=== PATIENT | male | born 1990 | race Caucasian/White ===

== ENCOUNTER 2018-09-27 20:21 | Emergency (ER) | payer OTHER ==
--- NOTE | 2018-09-27 21:02 | EDM.PDOC ---
<Isi Bahena Jass - Last Filed: 09/27/18 22:02> ED HPI GENERAL MEDICAL PROBLEM - General Chief Complaint: Chest Pain Stated Complaint: DIZZY/CHEST PRESSURE Time Seen by Provider: 09/27/18 20:45 Source of Information: Reports: Patient, RN Notes Reviewed, Significant Other History Limitations: Reports: No Limitations - History of Present Illness INITIAL COMMENTS - FREE TEXT/NARRATIVE: Eb is a 28 yo male who presents to the ER with complaints of chest discomfort in the epigastric region that radiates to the left chest. and daughter are in the room with him. His main concern is the dizzy spells that he has had today. He did not black out but had to really concentrate to stay up right. He had been sitting but stood up and the dizziness got better. His worst episode was when he crawled up into the [place]opez and thought he went up to fast. He does have a history of GERD and was started on Wellbutrin for depression about 3 1/2 weeks ago. He is under a lot of stress due to his grandmother being ill and needing to leave for [place] because of this. Onset: Today Onset Date: 09/27/18 Onset Time: 16:00 Duration: Intermittent Location: Reports: Head, Chest Quality: Reports: Sharp Severity: Moderate Improves with: Reports: None Context: Reports: Activity Associated Symptoms: Reports: Other (dizziness) Chest Pain Score (Numeric/FACES): 1 - Related Data Allergies Allergy/AdvReac Type Severity Reaction Status Date / Time No Known Allergies Allergy Verified 09/27/18 20:40 Home Meds: Home Meds Levothyroxine 75 mg PO DAILY 09/27/18 [History] Omeprazole 20 mg PO DAILY PRN 09/27/18 [History] buPROPion [Wellbutrin] 300 mg PO DAILY 09/27/18 [History] Past Medical History Gastrointestinal History: Reports: GERD, Other (See Below) Other Gastrointestinal History: acid reflux Psychiatric History: Reports: Depression (on Wellbutrin) - Past Surgical History HEENT Surgical History: Reports: Oral Surgery Social & Family History - Family History Other Cardiac Family History: Uncle around age 40 of cardiac issues. - Tobacco Use Smoking Status *Q: Former Smoker Used Tobacco, but Quit: Yes Month/Year Tobacco Last Used: 18mo ago - Caffeine Use Caffeine Use: Reports: Coffee, Energy Drinks, Soda, Tea - Recreational Drug Use Recreational Drug Use: No ED ROS GENERAL - Review of Systems Review Of Systems: See Below Constitutional: Reports: No Symptoms HEENT: Reports: No Symptoms Respiratory: Reports: No Symptoms Cardiovascular: Reports: Chest Pain Endocrine: Reports: No Symptoms GI/Abdominal: Reports: No Symptoms : Reports: No Symptoms Musculoskeletal: Reports: No Symptoms Skin: Reports: No Symptoms Neurological: Reports: Dizziness Psychiatric: Reports: Anxiety, Depression Hematologic/Lymphatic: Reports: No Symptoms Immunologic: Reports: No Symptoms ED EXAM, GENERAL - Physical Exam Exam: See Below Exam Limited By: No Limitations General Appearance: Alert, WD/WN, Anxious Ears: Normal External Exam Nose: Normal Inspection Throat/Mouth: Normal Lips Head: Atraumatic, Normocephalic Neck: Normal Inspection, Supple Respiratory/Chest: No Respiratory Distress, Lungs Clear, Normal Breath Sounds, No Accessory Muscle Use, Chest Non-Tender Cardiovascular: Normal Peripheral Pulses, Regular Rate, Rhythm, No Edema, No Gallop, No JVD, No Murmur, No Rub GI/Abdominal: Normal Bowel Sounds, Soft, Non-Tender, No Distention (Male) Exam: Deferred Rectal (Males) Exam: Deferred Neurological: Alert, Oriented, CN II-XII Intact, Normal Cognition Psychiatric: Anxious, Tearful (patient appears stressed. ) Skin Exam: Warm, Dry, Intact, Normal Color, No Rash Course - Vital Signs Last Recorded V/S: Last Vital Signs Temp 36.6 C 09/27/18 20:38 Pulse 97 09/27/18 20:38 Resp 18 09/27/18 20:38 BP 160/99 H 09/27/18 20:38 Pulse Ox 98 09/27/18 20:38 Orthostatic Blood Pressure [ 150/88 Standing] Orthostatic Blood Pressure [ 141/90 Supine] - Orders/Labs/Meds Orders: Active Orders 24 hr Category Date Time Status EKG Documentation Completion [RC] STAT Care 09/27/18 21:01 Active Orthostatic Vital Signs [RC] ASDIRECTED Care 09/27/18 21:00 Active Chest 1V Frontal [CR] Stat Exams 09/27/18 21:01 Taken Sodium Chloride 0.9% [Normal Saline] 1,000 ml Med 09/27/18 21:15 Active IV ASDIRECTED Medication Orders Sodium Chloride (Normal Saline) 1,000 mls @ 100 mls/hr IV ASDIRECTED TERRI Last Admin: 09/27/18 21:15 Dose: 100 mls/hr Labs: Laboratory Tests 09/27/18 09/27/18 09/27/18 Range/Units 21:10 21:10 21:10 WBC 7.20 (4.23-9.07) K/mm3 RBC 5.41 (4.63-6.08) M/mm3 Hgb 15.5 (13.7-17.5) gm/L Hct 46.4 (40.1-51.0) % MCV 85.8 (79.0-92.2) fl MCH 28.7 (25.7-32.2) pg MCHC 33.4 (32.2-35.5) g/dl RDW Std Deviation 40.4 (35.1-43.9) fL Plt Count 287 (163-337) K/mm3 MPV 10.8 (9.4-12.3) fl Neutrophils % (Manual) 72 H (40-60) % Band Neutrophils % 1 (0-10) % Lymphocytes % (Manual) 21 (20-40) % Atypical Lymphs % 0 % Monocytes % (Manual) 5 (2-10) % Eosinophils % (Manual) 1 (0.8-7.0) % Basophils % (Manual) 0 L (0.2-1.2) Platelet Estimate Adequate RBC Morph Comment Normal D-Dimer, Quantitative < 0.19 L (0.19-0.50) mg/L Sodium 138 (136-145) mEq/L Potassium 3.3 L (3.5-5.1) mEq/L Chloride 103 (98-107) mEq/L Carbon Dioxide 26 (21-32) mEq/L Anion Gap 12.3 (5-15) BUN 13 (7-18) mg/dL Creatinine 1.3 (0.7-1.3) mg/dL Est Cr Clr Drug Dosing 84.60 mL/min Estimated GFR (MDRD) > 60 (>60) mL/min BUN/Creatinine Ratio 10.0 L (14-18) Glucose 126 H (74-106) mg/dL Calcium 8.9 (8.5-10.1) mg/dL Magnesium 1.9 (1.8-2.4) mg/dl Total Bilirubin 0.5 (0.2-1.0) mg/dL AST 26 (15-37) U/L ALT 60 (16-63) U/L Alkaline Phosphatase 69 (46-116) U/L CK-MB (CK-2) 1.0 (0-3.6) ng/ml Troponin I < 0.017 (0.00-0.056) ng/mL C-Reactive Protein 0.9 (<1.0) mg/dL Total Protein 7.7 (6.4-8.2) g/dl Albumin 4.1 (3.4-5.0) g/dl Globulin 3.6 gm/dL Albumin/Globulin Ratio 1.1 (1-2) Meds: Medications Generic Name Dose Route Start Last Admin Trade Name Freq PRN Reason Stop Dose Admin Sodium Chloride 1,000 mls @ 100 mls/hr 09/27/18 21:15 09/27/18 21:15 Normal Saline IV 100 mls/hr ASDIRECTED TERRI Administration Discontinued Medications Generic Name Dose Route Start Last Admin Trade Name Freq PRN Reason Stop Dose Admin Al Hydroxide/Mg Hydroxide 30 0 ml 09/27/18 21:50 09/27/18 21:54 ml/ Lidocaine HCl 15 ml PO 09/27/18 21:51 45 ml ONETIME ONE Administration - Re-Assessments/Exams Free Text/Narrative Re-Assessment/Exam: 09/27/18 21:20 spoke with patient and explained the labs, ekg and chest xray. Will give him a GI cocktail to help with the epigastric discomfort. Pt is not real sure about the cocktail because he doesn't think it is reflux, explained that it will not hurt him but will help if it is reflux. 09/27/18 21:59 Spoke with patient and is about ekg and chest xray. reassurance given that they are normal. Waiting for labs. Will give the GI cocktail and see if that helps. Will update him on labs when they are all complete. Departure - Departure Disposition: Home, Self-Care 01 Clinical Impression: Non-cardiac chest pain Instructions: Nonspecific Chest Pain Referrals: Bernadette Smiley NP [Primary Care Provider] - Forms: ED Department Discharge Additional Instructions: Evaluation the emergency room tonight in regards to central chest discomfort started tonight. Recognizing that you are under good deal of stress with grandmother's illness in [place] with plans to travel there tonight. All of the investigations done through the emergency room tonight including heart tracing, chest x-ray, lab tests to rule out heart attack a look at what was called cardiac markers that can only come from damaged heart muscle are negative. Also no evidence of any blood clot in the lung. Therefore all the tests that we ran show no evidence of heart related illness. History of gastroesophageal reflux appreciated. Is often the cause of chest pain with spasm of the lower food pipe due to reflux of some acid into the lower one third of the food pipe while we are sleeping. This can leave the food pipe irritated and inflamed and can cause spasm and chest pains for 10 days after one bad night of reflux. I would therefore suggest going on Prilosec at bedtime daily for the next 2 weeks and then every other night to prevent permanent damage to the lower food pipe. - My Orders Last 24 Hours: My Active Orders 09/27/18 21:00 Orthostatic Vital Signs [RC] ASDIRECTED 09/27/18 21:01 EKG Documentation Completion [RC] STAT Chest 1V Frontal [CR] Stat 09/27/18 21:15 Sodium Chloride 0.9% [Normal Saline] 1,000 ml IV ASDIRECTED - Assessment/Plan Last 24 Hours: My Active Orders 09/27/18 21:00 Orthostatic Vital Signs [RC] ASDIRECTED 09/27/18 21:01 EKG Documentation Completion [RC] STAT Chest 1V Frontal [CR] Stat 09/27/18 21:15 Sodium Chloride 0.9% [Normal Saline] 1,000 ml IV ASDIRECTED <J Carlos Samuel - Last Filed: 09/27/18 22:40> Past Medical History Gastrointestinal History: Reports: GERD Social & Family History - Tobacco Use Smoking Status *Q: Former Smoker (Quit cigarettes about 18 months ago was 1 pack -a-day smoker) - Living Situation & Occupation Living situation: Reports: Occupation: Employed EKG INTERPRETATION EKG Date: 09/27/18 Time: 21:22 Rhythm: NSR Rate (Beats/Min): 86 Taberg: Normal P-Wave: Present QRS: Other (Nonspecific intraventricular trickier conduction delay pattern. Mildly decreased voltage in the precordial leads) ST-T: Normal QT: Normal EKG Interpretation Comments: No signs of ischemia Course - Radiology Interpretation Free Text/Narrative:: 28-year-old male presents to the ED with diffuse epigastric lower retrosternal chest discomfort. Recognizes under good deal of duress at present is his grandmother is very ill in [place] and they have plans to start driving towards [place] to trying to the bedside before she passes. This evening he developed a pressure sensation in his epigastrium and lower retrosternal chest with no radiation to the neck back or arm. He has no known cardiac history. He does have a history of gastroesophageal reflux disease and often will wake up at night with acid in his mouth and throat. He uses Prilosec on a when necessary basis usually when he has symptoms but often will go several weeks without needing it. He denies cough or sputum production. Does feel mildly short of breath. Describes the discomfort with a bit of a burning discomfort to it. Plan ECG done by triage nurse shows sinus rhythm at 86/m with nonspecific intraventricular conduction delay pattern. There is no signs of ischemia. Plan 1 view chest x-ray routine labs including cardiac markers and d-dimer to be done. - Re-Assessments/Exams Free Text/Narrative Re-Assessment/Exam: 09/27/18 21:51 Hematology reveals a normal white count at 7.20 with 72% neutrophils and 1% band cells. Hemoglobin is 15.5 with hematocrit of 46.4. Platelet count is 287,000. D-dimer is less than 0.19. Chest x-ray is within normal limits. ECG is sinus rhythm at 86/m with a nonspecific intraventricular conduction delay and mildly decreased voltage in the precordial leads but no signs of ischemia. 09/27/18 22:07 Sodium is 138 with a potassium slightly low at 3.3. Chloride 103 with a bicarbonate 26. Anion gap is 12.3 with a BUN of 13 and a creatinine of 1.3. GFR is greater than 60. BUN/creatinine ratio is 10.0. Glucose 126. Calcium 8.9 with magnesium of 1.9. Liver function is normal. CK-MB is 1.0 with troponin I of less than 0.017. C-reactive protein is 0.9. Total protein is 7.7 with an albumin fraction of 4.1. 09/27/18 22:20: Discussed the findings with the patient. Reassured that there is no evidence that he has any heart related illness. I feel it is safe for him to drive [place] alternating with his so they get adequate sleep. I believe his pain is likely gastroesophageal in origin with gastroesophageal reflux into the lower food pipe likely during sleep. Advised him to take Prilosec every day at bedtime for the next 2 weeks and then every other night to minimize damage to the esophagus over time. He reports that the GI cocktail did provide him with some relief of the pain. discharged to home. Follow-up with personal care physician if any further problems occur. Departure - Departure Time of Disposition: 22:38
--- NOTE | 2018-09-27 21:03 | EDM.PDOC ---
ED HPI GENERAL MEDICAL PROBLEM - General Chief Complaint: Chest Pain Stated Complaint: DIZZY/CHEST PRESSURE Time Seen by Provider: 09/27/18 21:00 Source of Information: Reports: Patient, Family History Limitations: Reports: No Limitations (Spouse) - History of Present Illness INITIAL COMMENTS - FREE TEXT/NARRATIVE: Note there are 2 charts in this patient. Patient was seen in concert with joint Jan STANTON student. I did see this patient in consultation and examined him as well. He presents to the ED with epigastric lower retrosternal chest pain that radiates slightly to the left precordial chest. Associated with to dizzy spells today by that he means he got lightheaded and felt like he might pass out for a period of time. Of note he was around his brain at the time this occurred an unclear whether or not he could've been exposed to excessive carbon monoxide. He recognizes under great deal of stress recently as well since his grandmother is in [facility] in [place] and they plan to travel [facility] to hopefully get to her bedside to say goodbye by as she is not expected to survive current illness. He has a history of gastroesophageal reflux and uses Prilosec when necessary. His biggest concern is the dizzy spells that occurred for no apparent reason. He is on Wellbutrin daily in the dosage was increased 10 days ago which should maintain that he is over the side effect profile which is can be flushing and dizziness related to the medication effect. Vital signs are stable and he is recognizably quite anxious on examination. Onset: Today Onset Date: 09/27/18 Onset Time: 14:00 Duration: Hour(s):, Intermittent Location: Reports: Chest, Other (Some lower retrosternal chest discomfort left precordial chest pain dizziness to the point of feeling like he might pass out 2 this afternoon) Quality: Reports: Burning Severity: Moderate (Light burning discomfort to the pain in his chest.) Improves with: Reports: None ( Would rated as a 3 or 4 out of 10.) Worsens with: Reports: None Context: Denies: Activity, Exercise, Lifting, Sick Contact, Trauma, Other Associated Symptoms: Reports: Chest Pain (Lower retrosternal chest discomfort left precordial chest discomfort), Other (Luc near syncope with dizziness lightheadedness. No true vertigo symptoms). 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 Blood levels were checked yesterday in clinic.) - Past Surgical History HEENT Surgical History: Reports: Oral Surgery Social & Family History - Tobacco Use Smoking Status *Q: Former Smoker Used Tobacco, but Quit: Yes Month/Year Tobacco Last Used: 18mo ago - Caffeine Use Caffeine Use: Reports: Coffee, Energy Drinks, Soda, Tea - Recreational Drug Use Recreational Drug Use: No ED ROS GENERAL - Review of Systems Review Of Systems: See Below Constitutional: Denies: Fever, Chills, Malaise, Weakness, Decreased Appetite, Weight Loss HEENT: Reports: No Symptoms Respiratory: Reports: No Symptoms. Denies: Shortness of Breath, Cough, Hemoptysis, Other Cardiovascular: Reports: Chest Pain, Lightheadedness (History of present illness to lightheaded episodes occurred today while at work. I have some concerns he may been exposed to excessive amounts of carbon dioxide with the [employer] running.) Endocrine: Reports: Fatigue GI/Abdominal: Reports: Abdominal Pain, Other (Does have some epigastric abdominal pain that seems to be referred up into his lower retrosternal area.) : Reports: No Symptoms ( GERD which he uses Prilosec for intermittently.) Musculoskeletal: Reports: Back Pain (Occasional problems with low back pain.) Skin: Reports: No Symptoms Neurological: Reports: Dizziness (Lisle dizzy 2 today to the point where he felt like he might pass out. Unaware of his heart racing skipping and jumping at the time) Psychiatric: Reports: Anxiety Hematologic/Lymphatic: Reports: No Symptoms (He has started on Wellbutrin about 6 weeks ago for anxiety relief. Dosage was increased 10 days ago.) Immunologic: Reports: No Symptoms ED EXAM, GENERAL - Physical Exam Exam: See Below Exam Limited By: No Limitations General Appearance: Alert, WD/WN, Anxious, Mild Distress Eye Exam: Bilateral Eye: Normal Inspection Ears: Normal TMs Throat/Mouth: Normal Inspection, Normal Lips, Normal Oropharynx, Other Head: Atraumatic, Normocephalic (Uvula is in the midline) Neck: Normal Inspection, Supple, Non-Tender, Full Range of Motion. No: Carotid Bruit, Lymphadenopathy (L), Lymphadenopathy (R) Respiratory/Chest: No Respiratory Distress, Lungs Clear, Normal Breath Sounds, No Accessory Muscle Use Cardiovascular: Normal Peripheral Pulses, Regular Rate, Rhythm, No Edema, No Gallop, No Murmur, No Rub Peripheral Pulses: 3+: Posterior Tibial (L), Posterior Tibial (R), Dorsalis Pedis (L), Dorsalis Pedis (R) GI/Abdominal: Normal Bowel Sounds, Soft, Tender (Slight tenderness in the epigastrium only) Extremities: Normal Inspection, Normal Range of Motion, Non-Tender, Normal Capillary Refill Neurological: Alert, Oriented, CN II-XII Intact, Normal Cognition, Normal Gait Psychiatric: Normal Affect, Normal Mood Skin Exam: Warm, Dry, Intact, Normal Color, No Rash Course - Vital Signs Last Recorded V/S: Last Vital Signs Temp 36.6 C 09/27/18 20:38 Pulse 97 09/27/18 20:38 Resp 18 09/27/18 20:38 BP 160/99 H 09/27/18 20:38 Pulse Ox 98 09/27/18 20:38 Orthostatic Blood Pressure [ 150/88 Standing] Orthostatic Blood Pressure [ 141/90 Supine] - Orders/Labs/Meds Orders: Active Orders 24 hr Category Date Time Status EKG Documentation Completion [RC] STAT Care 09/27/18 21:01 Active Orthostatic Vital Signs [RC] ASDIRECTED Care 09/27/18 21:00 Active Chest 1V Frontal [CR] Stat Exams 09/27/18 21:01 Taken Labs: Laboratory Tests 09/27/18 09/27/18 09/27/18 Range/Units 21:10 21:10 21:10 WBC 7.20 (4.23-9.07) K/mm3 RBC 5.41 (4.63-6.08) M/mm3 Hgb 15.5 (13.7-17.5) gm/L Hct 46.4 (40.1-51.0) % MCV 85.8 (79.0-92.2) fl MCH 28.7 (25.7-32.2) pg MCHC 33.4 (32.2-35.5) g/dl RDW Std Deviation 40.4 (35.1-43.9) fL Plt Count 287 (163-337) K/mm3 MPV 10.8 (9.4-12.3) fl Neutrophils % (Manual) 72 H (40-60) % Band Neutrophils % 1 (0-10) % Lymphocytes % (Manual) 21 (20-40) % Atypical Lymphs % 0 % Monocytes % (Manual) 5 (2-10) % Eosinophils % (Manual) 1 (0.8-7.0) % Basophils % (Manual) 0 L (0.2-1.2) Platelet Estimate Adequate RBC Morph Comment Normal D-Dimer, Quantitative < 0.19 L (0.19-0.50) mg/L Sodium 138 (136-145) mEq/L Potassium 3.3 L (3.5-5.1) mEq/L Chloride 103 (98-107) mEq/L Carbon Dioxide 26 (21-32) mEq/L Anion Gap 12.3 (5-15) BUN 13 (7-18) mg/dL Creatinine 1.3 (0.7-1.3) mg/dL Est Cr Clr Drug Dosing 84.60 mL/min Estimated GFR (MDRD) > 60 (>60) mL/min BUN/Creatinine Ratio 10.0 L (14-18) Glucose 126 H (74-106) mg/dL Calcium 8.9 (8.5-10.1) mg/dL Magnesium 1.9 (1.8-2.4) mg/dl Total Bilirubin 0.5 (0.2-1.0) mg/dL AST 26 (15-37) U/L ALT 60 (16-63) U/L Alkaline Phosphatase 69 (46-116) U/L CK-MB (CK-2) 1.0 (0-3.6) ng/ml Troponin I < 0.017 (0.00-0.056) ng/mL C-Reactive Protein 0.9 (<1.0) mg/dL Total Protein 7.7 (6.4-8.2) g/dl Albumin 4.1 (3.4-5.0) g/dl Globulin 3.6 gm/dL Albumin/Globulin Ratio 1.1 (1-2) Meds: Medications Discontinued Medications Generic Name Dose Route Start Last Admin Trade Name Marilu PRN Reason Stop Dose Admin Al Hydroxide/Mg Hydroxide 30 0 ml 09/27/18 21:50 09/27/18 21:54 ml/ Lidocaine HCl 15 ml PO 09/27/18 21:51 45 ml ONETIME ONE Administration Sodium Chloride 1,000 mls @ 100 mls/hr 09/27/18 21:15 09/27/18 21:15 Normal Saline IV 100 mls/hr ASDIRECTED TERRI Administration - Radiology Interpretation Free Text/Narrative:: 20-year-old male presents to the ED with epigastric pressure discomfort rating up into the lower retrosternal area of his chest and left precordium. He also describes 2 events this afternoon while at work where he became quite dizzy lightheaded and felt like he might pass out. He did not recognize any heart palpitations at the time. This is never happened before. 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 He thought about it for a while and says it's possible. He is under great deal of duress at this point time with his grandmother in very poor health in [place]. A plan to drive to [facility] a [address] to try and get to her bedside before she succumbs to her current illness. I believe this is contributing to some of his chest discomfort as well. He also has a history of GERD and is not been using his Prilosec for the last week. Spleen that he can still be refluxing at nighttime into the lower third of the food pipe which may be causing some of his current symptoms as well. Landed you'll have a complete cardiac workup. His ECG revealed sinus rhythm at 86/m with a nonspecific intraventricular conduction delay but no signs of ischemia. Chest x-ray cardiac markers and a d-dimer will be done. - Re-Assessments/Exams Free Text/Narrative Re-Assessment/Exam: 09/27/18 22:20; chest x-rays within normal limits. 09/27/18 22:30: Labs reveal a normal white count at 7.20 with 72% neutrophils and 1% band cells. Hemoglobin is 15.5 with hematocrit of 46.4. Platelet count is 287,000. D-dimer is less than 0.19. Sodium 138 with potassium slightly low at 3.3. Chloride 103 with a bicarbonate 26. Anion gap is 12.3 with a BUN of 13. Creatinine was 1.3 GFR is greater than 60. BUN/creatinine ratio was 10.0. Glucose is 126. Calcium 8.9 with a magnesium of 1.9. Liver function is normal. CK-MB is 1.0 C-reactive protein is 0.9 troponin I is less than 0.017. I discussed the findings with the patient. I reassured him that there appears to be no evidence of heart related illness. Strongly suspect that he suffered from esophageal spasm from likely reflux during sleep. Advised him to resume Prilosec 20 mg once daily at bedtime for the next 2 weeks and then take it every other night. In regards to the dizzy spells signs just instructed to adopt a wait and see approach. 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 Follow up with personal care provider if any further problems occur. Departure - Departure Time of Disposition: 22:28 Disposition: Home, Self-Care 01 Condition: Fair Clinical Impression: Non-cardiac chest pain Instructions: Nonspecific Chest Pain Referrals: Bernadette Smiley NP [Primary Care Provider] - Forms: ED Department Discharge Additional Instructions: Evaluation the emergency room tonight in regards to central chest discomfort started tonight. Recognizing that you are under good deal of stress with grandmother's illness in [place] with plans to travel there tonight. All of the investigations done through the emergency room tonight including heart tracing, chest x-ray, lab tests to rule out heart attack a look at what was called cardiac markers that can only come from damaged heart muscle are negative. Also no evidence of any blood clot in the lung. Therefore all the tests that we ran show no evidence of heart related illness. History of gastroesophageal reflux appreciated. Is often the cause of chest pain with spasm of the lower food pipe due to reflux of some acid into the lower one third of the food pipe while we are sleeping. This can leave the food pipe irritated and inflamed and can cause spasm and chest pains for 10 days after one bad night of reflux. I would therefore suggest going on Prilosec at bedtime daily for the next 2 weeks and then every other night to prevent permanent damage to the lower food pipe. - My Orders Last 24 Hours: My Active Orders 09/27/18 21:00 Orthostatic Vital Signs [RC] ASDIRECTED 09/27/18 21:01 EKG Documentation Completion [RC] STAT Chest 1V Frontal [CR] Stat - Assessment/Plan Last 24 Hours: My Active Orders 09/27/18 21:00 Orthostatic Vital Signs [RC] ASDIRECTED 09/27/18 21:01 EKG Documentation Completion [RC] STAT Chest 1V Frontal [CR] Stat
[2018-09-27] MEDS ORDERED: Sodium Chloride 0.9% 1,000 ML IV SCH (21:15)
[2018-09-27] MEDS ORDERED: Alum Hydrox/Mag Hydrox/Simeth 30 ML, Lidocaine 2% 15 ML PO ONE ×2 (21:50)
--- NOTE | 2018-09-28 07:01 | CR ---
Chest: Portable view of the chest was obtained. Comparison: No prior chest x-ray. Heart size and mediastinum are normal. Linear scar or discoid atelectasis is seen within the right midlung. Lungs otherwise are clear. Bony structures are unremarkable. Impression: 1. Linear area of scarring or discoid atelectasis on the right side. Nothing acute is otherwise seen. Diagnostic code #2
== END 2018-09-27 22:40 | disposition home or self-care (01) ==
LOC: JD.ED 20:21
DX: R07.89 Other chest pain (principal); E03.9 Hypothyroidism, unspecified; Z79.899 Other long term (current) drug therapy; Z87.891 Personal history of nicotine dependence
CPT/HCPCS: 36415; 71045; 80053; 82553; 83735; 84484; 85007; 85027; 85379; 86140; 93005; 96360; 99285; A9270; J7040

== ENCOUNTER 2021-11-19 18:42 | Emergency (ER) | payer BC, OTHER ==
[2021-11-19] MEDS ORDERED: Sodium Chloride 0.9% 10 ML Syringe FLUSH PRN (19:40)
== END 2021-11-19 22:00 | disposition home or self-care (01) ==
LOC: JD.ED 18:42
DX: R07.89 Other chest pain (principal); K21.9 Gastro-esophageal reflux disease without esophagitis; E03.9 Hypothyroidism, unspecified; Z79.899 Other long term (current) drug therapy
CPT/HCPCS: 36415; 71045; 71045-26; 80053; 83735; 84484; 85025; 85610; 85730; 93005; 93010; 99283; 99285-25

== ENCOUNTER 2022-06-19 14:47 | Emergency (ER) | payer BC ==
[2022-06-19] MEDS ORDERED: predniSONE 20 MG Tab PO ONE (15:27)
== END 2022-06-19 15:43 | disposition home or self-care (01) ==
LOC: JD.ED 14:47
DX: G51.0 Bell's palsy (principal); F17.210 Nicotine dependence, cigarettes, uncomplicated; Z79.899 Other long term (current) drug therapy
CPT/HCPCS: 99283; J7512

== ENCOUNTER 2024-12-08 19:56 | Emergency (ER) | payer BC, MEDICAID ==
[2024-12-08] MEDS: Famotidine 20 MG/2 ML SDV IVPUSH ONE (20:30)
[2024-12-08] MEDS: Sodium Chloride 0.9% 1,000 ML IV ONE (20:30)
[2024-12-08] MEDS: Alum Hydrox/Mag Hydrox/Simeth 30 ML, Lidocaine 2% 15 ML PO ONE (20:30)
[2024-12-08 20:46] LABS: BASOPHILS ABSOLUTE AUTO 0.1 K/mm3 (0.0-0.2); BASOPHILS PERCENT AUTO 0.6 % (0.0-1.0); EOSINOPHILS ABSOLUTE AUTO 0.2 K/mm3 (0.0-0.4); EOSINOPHILS PERCENT AUTO 2.2 % (0.0-6.0); HEMATOCRIT 48.6 % (42.0-52.0); HEMOGLOBIN 16.3 gm/dl (14.0-18.0); IMMATURE GRAN ABSOLUTE AUTO 0.02 K/mm3 (0.00-0.05); IMMATURE GRAN PERCENT AUTO 0.2 % (0.0-0.4); LYMPHOCYTES ABSOLUTE AUTO 2.7 K/mm3 (1.0-4.8); LYMPHOCYTES PERCENT AUTO 30.4 % (24.0-44.0); MEAN CORPUSCULAR HEMOGLOBIN 29.7 pg (28.0-32.0); MEAN CORPUSCULAR HGB CONC 33.5 g/dl (32.0-36.0); MEAN CORPUSCULAR VOLUME 88.5 fl (83.0-99.0); MEAN PLATELET VOLUME 10.9 fl (9.4-12.4); MONOCYTES ABSOLUTE AUTO 0.8 K/mm3 (0.0-0.8); MONOCYTES PERCENT AUTO 9.4 % (0.0-8.0); NEUTROPHILS ABSOLUTE AUTO 5.1 K/mm3 (1.8-7.7); NEUTROPHILS PERCENT AUTO 57.2 % (41.0-71.0); PLATELET COUNT,PLT 304 K/mm3 (150-400); RED BLOOD CELL COUNT 5.49 M/mm3 (4.52-5.90); WHITE BLOOD CELL COUNT,WBC 8.91 K/mm3 (3.9-11.3)
[2024-12-08] MEDS: Iopamidol 612 MG/ML 30 ML SDV IV ONE (20:50)
[2024-12-08] MEDS: Iopamidol 612 MG/ML 100 ML Bottle IVPUSH ONE (20:50)
[2024-12-08] MEDS: Sodium Chloride 0.9% 10 ML Syringe FLUSH PRN (20:50)
[2024-12-08 21:13] LABS: A/G RATIO 0.9 (1-2); ALBUMIN 3.7 g/dl (3.4-5.0); ANION GAP 10.4 (5-15); BILIRUBIN TOTAL 0.4 mg/dL (0.2-1.0); BUN/CREATININE RATIO 8.6 (14-18); C-REACTIVE PROTEIN 0.79 mg/dL (<0.30); CALCIUM 9.1 mg/dL (8.5-10.1); CREATININE 1.4 mg/dL (0.7-1.3); EST CRCL DRUG DOSING (CG) 74.35 mL/min; POTASSIUM,K 3.4 mEq/L (3.5-5.1); PROTEIN TOTAL,TP 7.8 g/dl (6.4-8.2)
[2024-12-08] MEDS ORDERED: Naloxone 0.4 MG/ML SDV IVPUSH PRN (21:24)
[2024-12-08] MEDS: HYDROmorphone 0.5 MG/0.5 ML Syringe IVPUSH ONE (21:42)
== END 2024-12-08 22:00 | disposition home or self-care (01) ==
LOC: JD.ED 19:56
DX: K81.9 Cholecystitis, unspecified (principal); E03.9 Hypothyroidism, unspecified; Z79.899 Other long term (current) drug therapy
CPT/HCPCS: 36415; 74177; 80053; 83690; 85025; 86140; 96361; 96374; 96375; 99284; A9270; J7030; Q9967

== ENCOUNTER 2024-12-25 12:26 | Day surgery (SDC) | payer MEDICAID ==
[2024-12-25] MEDS ORDERED: Lactated Ringers 1,000 ML IV ONE (12:27)
[2024-12-25] MEDS ORDERED: Midazolam 1 MG/ML 2 ML SDV ONE (12:42)
[2024-12-25] MEDS ORDERED: fentaNYL 250 MCG/5 ML SDV ONE (12:43)
[2024-12-25] MEDS ORDERED: Propofol 200 MG/20 ML SDV ONE ×4 (12:43→13:06)
[2024-12-25] MEDS ORDERED: Succinylcholine 200 MG/10 ML MDV ONE (12:44)
[2024-12-25] MEDS ORDERED: Rocuronium 50 MG/5 ML Vial ONE (12:44)
[2024-12-25] MEDS ORDERED: Lidocaine 2% 5 ML SDV ONE (12:44)
[2024-12-25] MEDS ORDERED: ceFAZolin 2 GM Vial ONE (12:47)
[2024-12-25] MEDS: Lactated Ringers 1,000 ML IV SCH (13:00)
[2024-12-25] MEDS: Acetaminophen 325 MG Tab PO ONE (13:03)
[2024-12-25] MEDS: Gabapentin 300 MG Cap PO ONE (13:03)
[2024-12-25] MEDS ORDERED: HYDROmorphone 0.5 MG/0.5 ML Syringe ONE (13:57)
[2024-12-25] MEDS ORDERED: Ondansetron 4 MG/2 ML SDV ONE (14:00)
[2024-12-25] MEDS ORDERED: Dexamethasone 4 MG/ML 5 ML MDV ONE (14:00)
[2024-12-25] MEDS ORDERED: Neostigmine Methylsulfate 10 MG/10 ML MDV ONE (14:33)
[2024-12-25] MEDS ORDERED: Glycopyrrolate 0.2 MG/ML 2 ML SDV ONE (14:33)
[2024-12-25] MEDS ORDERED: Ketorolac 30 MG/ML SDV ONE (14:50)
[2024-12-25] MEDS: Bupivacaine 0.5% 30 ML SDV ONE (15:00)
[2024-12-25] MEDS: EPINEPHrine 1 MG/ML SDV ONE (15:00)
[2024-12-25] MEDS: Lidocaine 1% 30 ML SDV ONE (15:00)
[2024-12-25] MEDS ORDERED: fentaNYL 100 MCG/2 ML SDV IVPUSH PRN (16:08)
[2024-12-25] MEDS ORDERED: Ondansetron 4 MG/2 ML SDV IVPUSH PRN (16:08)
[2024-12-25] MEDS ORDERED: HYDROmorphone 0.5 MG/0.5 ML Syringe IVPUSH PRN (16:08)
[2024-12-25] MEDS ORDERED: Acetaminophen/oxyCODONE 325-5 MG Tab PO PRN (16:38)
== END 2024-12-25 17:55 | disposition home or self-care (01) ==
LOC: JD.SDS 12:26
PROVIDERS: ATTEND Surgery
DX: K80.64 Calculus of gallbladder and bile duct with chronic cholecystitis without obstruction (principal); K40.90 Unilateral inguinal hernia, without obstruction or gangrene, not specified as recurrent; E03.9 Hypothyroidism, unspecified; K21.9 Gastro-esophageal reflux disease without esophagitis; Z87.891 Personal history of nicotine dependence
CPT/HCPCS: 47562; A9270; J0171; J0330; J0665; J0690; J1100; J1596; J1885; J2003; J2250; J2405; J2704; J2710; J3010; J7120; 00790; J3490